=== PATIENT | male | born 1980 | race Caucasian/White ===

== ENCOUNTER 2021-10-18 17:08 | Emergency (ER) | payer SELFPAY ==
[~2021-10-18] VITALS: Ht 175.3 cm; Wt 99.8 kg
[2021-10-18] MEDS ORDERED: PERCOCET 5-3251 EACH PO (19:23)
== END 2021-10-18 21:41 | disposition home or self-care (01) ==
LOC: FER 17:08
DX: S52.501A Unspecified fracture of the lower end of right radius, initial encounter for closed fracture (principal); S52.611A Displaced fracture of right ulna styloid process, initial encounter for closed fracture; Z20.822 Contact with and (suspected) exposure to COVID-19; Z28.310 Unvaccinated for COVID-19; W11.XXXA Fall on and from ladder, initial encounter; Y92.009 Unspecified place in unspecified non-institutional (private) residence as the place of occurrence of the external cause
CPT/HCPCS: 73090; 73110; U0002

== ENCOUNTER → 2021-10-21 | Day surgery (SDC) | payer SELFPAY ==
[~2021-10-21] VITALS: Ht 175.3 cm; Wt 99.8 kg
[~2021-10-21] MED LIST: PERCOCET 5-3251 EACH PO
[2021-10-21 06:54] LABS: HCT 46.5 % (42.0-52.0); HGB 16.2 g/dl (13.2-18.0); MCH 33.1 pg (25.0-31.0); MCHC 34.8 g/dL (32.0-36.0); MCV 95.1 fL (78.0-100.0); MPV 9.9 fL (6.0-9.5); RBC 4.89 M/uL (4.70-6.00); RDW 11.7 % (11.5-14.0); WBC 8.9 K/uL (4.0-10.5)
[2021-10-21 07:17] LABS: BILIRUBIN - TOTAL 0.9 mg/dL (0.2-1.0); BUN/CREAT RATIO (CALC) 16.3 RATIO; CREATININE 0.86 mg/dL (0.67-1.17); GLOBULIN (CALCULATION) 3.5 g/dL; POTASSIUM 4.4 mmol/L (3.5-5.1); TOTAL PROTEIN 7.5 g/dL (6.4-8.2)
== END | disposition home or self-care (01) ==
LOC: FAS 06:05
PROVIDERS: Orthopaedic Surgery
DX: S52.571A Other intraarticular fracture of lower end of right radius, initial encounter for closed fracture (principal); Z91.030 Bee allergy status; X58.XXXA Exposure to other specified factors, initial encounter
CPT/HCPCS: 36415; 71045; 73100; 76000; 80053; 93005; J0690; J1100; J2250; J2704; J2795; J7120